=== PATIENT | male | born 1980 | race Two or more races ===

== ENCOUNTER 2018-07-22 07:30 | Day surgery (SDC) | payer OTHER ==
[2018-07-22 08:33] LABS: INTERNATIONAL RATION (INR) 0.85; PROTHROMBIN TIME 12.1 SEC (11.4-15.4)
[2018-07-22 08:34] LABS: PARTIAL THROMBOPLASTIN TIME 23.4 SEC (23.5-35.8)
[2018-07-22] MEDS ORDERED: LIDOCAINE 1% INJ-PF (10 MG/ML) 30 ML SDV ONE (09:38)
--- NOTE | 2018-07-22 12:46 | RADIOLOGY REPORT (SQ) ---
EXAM DESCRIPTION: MYELOGRAM THORACIC; CT THORACIC SPINE WITH COMPLETED DATE/TIME: 07/22/2018 10:40 am; 07/22/2018 11:02 am REASON FOR STUDY: MID BACK PAIN M54.6 PAIN IN THORACIC SPINE COMPARISON: Outside report MRI thoracic spine without contrast 06/30/2018 [facility] FLUOROSCOPY TIME: 1.5 minutes 18 digital fluoroscopic/radiographic images, axial CT thoracic spine with sagittal and coronal recons tructions images saved to PACS. TECHNIQUE: Fluoroscopic guided thoracic myelogram and postmyelogram CT. LIMITATIONS: None. PROCEDURE: After written consent and assessment were obtained, the patient was brought into the fluo roscopy room and placed prone on the table. The patient's lower back was prepped in a sterile fashio n with Betadine and draped in sterile fashion, and an entry site was selected under live fluoroscopic guidance. The entry site was anesthetized with 3 mL of 1% lidocaine. The 20 gauge spinal needle was advanced through the skin and into the thecal sac at the level of left paracentral L3-4. Contrast wa s injected into the thecal sac. Following the procedure the needle was removed and a sterile bandage was placed of the site. CONTRAST: 7.5 mL Isovue M 300. IMAGES ACQUIRED: Digital radiographs and fluoroscopic digital images of the thoracic spine Postmyelogram CT thoracic spine with sagittal and coronal reconstructions TECHNIQUE: After performing lumbar myelogram, axial images were acquired through the lumbar spine wi thout intravenous contrast. Images reviewed with lung, soft tissue and bone windows. Reconstructed coronal and sagittal MPR images reviewed. All images stored on PACS. All CT scanners at this facility use dose modulation, iterative reconstruction, and/or weight based d osing when appropriate to reduce radiation dose to as low as reasonably achievable (ALARA). [facility]: Dose Right [facility]: CareDose [facility]: Dose Right [facility]: Teradose 4D [facility]: [employer] FINDINGS: At the level of the T4 vertebral body, there is subtle ventral displacement of the thoraci c cord without intradural extramedullary mass or significant thoracic cord flattening. There is mild prominence of the CSF spaces dorsally on sagittal image 31 and axial images 29-35. No bony central canal stenosis or abnormality along the T4 pedicles or lamina. At the T4-5 level, there is very dense calcification of ligamentum flavum in the dorsal aspect of th e spinal canal without significant encroachment on the thecal sac. This is best shown on sagittal im age 31 and axial images 32-38. These above findings could represent changes from remote prior trauma with arachnoid cyst formation o r disruption of the suspensory ligaments of the thoracic cord within the canal at this level. No sig nificant T3-4 or T4-5 disc herniation or significant central or foraminal encroachment. SEGMENTATION: Normal. No transitional anatomy. ALIGNMENT: Normal. VERTEBRAL BODIES: No fractures. No dislocation. No acute findings. HARDWARE: None in the spine. DISCS: No thoracic spine disc protrusion/herniation or significant central or foraminal encroachment . PEDICLES, TRANSVERSE PROCESSES: No fractures. No dislocation. No acute findings. FACETS, POSTERIOR ELEMENTS: No fractures. No dislocation. Mild diffuse multilevel facet arthropath y in the thoracic spine from T4-5 through T8-9. VISUALIZED RIBS: No fractures. SOFT TISSUES: No significant or acute finding in adjacent soft tissues. OTHER: No other significant finding. IMPRESSION: No thoracic spine disc protrusion/herniation. Multilevel facet arthropathy in the mid and lower thoracic spine Changes at the T4 level within the canal likely represents sequela of remote prior trauma COMMENT: Patient medication list reviewed: Yes- Quality ID# [id number]:Eligible professional attests to doc umenting in the medical record they obtained, updated, or reviewed the patient's current medications. TECHNICAL DOCUMENTATION: JOB ID: [id number] Quality ID # [id number]: Final reports with documentation of one or more dose reduction techniques (e.g., Au tomated exposure control, adjustment of the mA and/or kV according to patient size, use of iterative reconstruction technique) 2010 [employer]- All Rights Reserved Reading location - IP/workstation name: [email or web address]
[2018-07-22 13:09] VITALS: BP 120/80
== END 2018-07-22 13:10 | disposition home or self-care (01) ==
LOC: RAD 07:30
PROVIDERS: ATTEND Family Medicine Sports Medicine
DX: M54.6 Pain in thoracic spine (principal)
CPT/HCPCS: 36415; 85610; 85730; 72255; 72129; J3490